=== PATIENT | female | born 1975 | race Caucasian/White ===

== ENCOUNTER 2020-03-02 06:24 | Day surgery (SDC) | payer OTHER ==
[2020-03-02] MEDS ORDERED: Lactated Ringers 1,000 ML IV SCH (06:30)
--- NOTE | 2020-03-02 07:11 | PCM.PREANE ---
Preanesthetic Assessment - Anesthesia/Transfusion/Family Hx Anesthesia History: Prior Anesthesia Without Reaction Family History of Anesthesia Reaction: No Transfusion History: No Prior Transfusion(s) Intubation History: Unknown - Review of Systems General: No Symptoms Pulmonary: No Symptoms Cardiovascular: No Symptoms Gastrointestinal: No Symptoms Neurological: No Symptoms Other: Reports: None - Physical Assessment Vital Signs: Last Vital Signs Temp 36.2 C 03/02/20 06:55 Pulse 78 03/02/20 06:55 Resp 16 03/02/20 06:55 BP 142/83 H 03/02/20 06:55 Pulse Ox 97 03/02/20 06:55 Height: 5 ft 10 in Weight: 107.501 kg ASA Class: 2 Mental Status: Alert & Oriented x3 Airway Class: Mallampati = 2 Dentition: Reports: Normal Dentition Thyro-Mental Finger Breadths: 3 Mouth Opening Finger Breadths: 3 ROM/Head Extension: Full Lungs: Clear to Auscultation, Normal Respiratory Effort Cardiovascular: Regular Rate, Regular Rhythm - Allergies Allergies/Adverse Reactions: Allergies Allergy/AdvReac Type Severity Reaction Status Date / Time No Known Allergies Allergy Verified 02/25/20 08:43 - Blood Blood Available: No - Anesthesia Plan Pre-Op Medication Ordered: None - Acknowledgements Anesthesia Type Planned: General Anesthesia Pt an Appropriate Candidate for the Planned Anesthesia: Yes Alternatives and Risks of Anesthesia Discussed w Pt/Guardian: Yes Pt/Guardian Understands and Agrees with Anesthesia Plan: Yes PreAnesthesia Questionnaire HEENT History: Reports: Impaired Vision Other HEENT History: wears glasses and contact lenses Cardiovascular History: Reports: Other (See Below) (episode of tachy in '06 after prolonged labor (20 hours) and C/S) Respiratory History: Reports: None Gastrointestinal History: Reports: Cholelithiasis Genitourinary History: Reports: None [employer] History: Reports: Polycystic Ovaries, Musculoskeletal History: Reports: Fracture Other Musculoskeletal History: right wrist Neurological History: Reports: None Psychiatric History: Reports: None Endocrine/Metabolic History: Reports: None (BMI 34), Obesity/BMI 30+ Hematologic History: Reports: None Immunologic History: Reports: None Oncologic (Cancer) History: Reports: None Dermatologic History: Reports: None - Infectious Disease History Infectious Disease History: Reports: None - Past Surgical History Head Surgeries/Procedures: Reports: None HEENT Surgical History: Reports: None Cardiovascular Surgical History: Reports: None Respiratory Surgical History: Reports: None GI Surgical History: Reports: Cholecystectomy Female Surgical History: Reports: None, Section (x2) Endocrine Surgical History: Reports: None Musculoskeletal Surgical History: Reports: None Oncologic Surgical History: Reports: None - SUBSTANCE USE Tobacco Use Status *Q: Never Tobacco User Tobacco Use Within Last Twelve Months: Snuff/Dip - HOME MEDS Home Medications: Home Meds Multivitamin with Minerals [Multiple Vitamin] 1 tab PO DAILY 02/25/20 [History] Phentermine/Topiramate [Qsymia 3.75 mg-23 mg Capsule] 0.5 tab PO BID 02/25/20 [History] metFORMIN HCl [Metformin HCl] 1 tab PO BID 02/25/20 [History] - CURRENT (IN HOUSE) MEDS Current Meds: Current Medications Lactated Ringer's (Ringers, Lactated) 1,000 mls @ 100 mls/hr IV ASDIRECTED [facility], 1928–1983 Last Admin: 03/02/20 07:08 Dose: 100 mls/hr Documented by:
[2020-03-02] MEDS ORDERED: Sugammadex Sodium 200 MG/2 ML VIAL ONE (07:17)
[2020-03-02] MEDS ORDERED: ceFAZolin/Dextrose,Iso-Osmotic 2 GM/50 ML Duplex Bag IV ONE (07:17)
[2020-03-02] MEDS ORDERED: Methylene Blue 50 MG/10 ML Ampule ONE (07:35)
[2020-03-02] MEDS ORDERED: Bupivacaine 0.25% 10 ML SDV ONE (07:35)
[2020-03-02] MEDS ORDERED: Ondansetron 4 MG/2 ML SDV ONE (07:35)
[2020-03-02] MEDS ORDERED: Lidocaine 2% 5 ML SDV ONE (07:35)
[2020-03-02] MEDS ORDERED: Ketorolac 30 MG/ML SDV ONE (07:35)
[2020-03-02] MEDS ORDERED: Dexamethasone 4 MG/ML 5 ML MDV ONE (07:35)
[2020-03-02] MEDS ORDERED: Rocuronium Bromide 50 MG/5 ML Syringe ONE ×2 (07:35→09:12)
[2020-03-02] MEDS ORDERED: Propofol 200 MG/20 ML SDV ONE ×4 (07:36→10:16)
[2020-03-02 07:37] LABS: BLOOD UREA NITROGEN,BUN 14 mg/dL (7.0-18.0); CARBON DIOXIDE,CO2 28.4 mmol/L (21.0-32.0); CHLORIDE,CL 105 mmol/L (98-107); GLUCOSE RANDOM 97 mg/dL (74-106); POTASSIUM,K 3.7 mmol/L (3.5-5.1); SODIUM,NA 141 mmol/L (136-145)
[2020-03-02] MEDS ORDERED: HYDROmorphone 2 MG/ML Syringe ONE ×2 (07:39→10:51)
[2020-03-02] MEDS ORDERED: fentaNYL 100 MCG/2 ML SDV ONE (07:39)
[2020-03-02] MEDS ORDERED: Midazolam 1 MG/ML 2 ML SDV ONE (07:39)
[2020-03-02] MEDS ORDERED: Ketamine 500 mg/10 ML MDV ONE (07:39)
[2020-03-02] MEDS ORDERED: Glycopyrrolate 0.2 MG/ML SDV ONE (08:37)
[2020-03-02] MEDS ORDERED: ePHEDrine 50 MG/ML SDV ONE (08:44)
[2020-03-02] MEDS ORDERED: Octyl 2-Cyanoacrylate 1 Tube ONE (09:45)
[2020-03-02] MEDS ORDERED: Fluorescein 5 ML Vial ONE (09:55)
[2020-03-02] MEDS ORDERED: Promethazine 25 MG/ML SDV IM PRN (11:01)
[2020-03-02] MEDS ORDERED: Acetaminophen/oxyCODONE 325-5 MG Tab PO PRN (11:01)
[2020-03-02] MEDS ORDERED: Ketorolac 30 MG/ML SDV IVPUSH PRN (11:01)
[2020-03-02] MEDS ORDERED: Ketorolac 30 MG/ML SDV IVPUSH ONE (11:01)
[2020-03-02] MEDS ORDERED: Morphine 4 MG/ML Syringe IVPUSH PRN (11:01)
[2020-03-02] MEDS: fentaNYL 100 MCG/2 ML SDV IVPUSH PRN ×2 (11:45→11:50)
--- NOTE | 2020-03-02 12:11 | PCM.POSTAN ---
POST ANESTHESIA ASSESSMENT - MENTAL STATUS Mental Status: Alert, Oriented - VITAL SIGNS Vital Signs: Last Vital Signs Temp 36.4 C 03/02/20 10:46 Pulse 67 03/02/20 12:02 Resp 12 03/02/20 12:02 BP 105/59 L 03/02/20 12:02 Pulse Ox 95 03/02/20 12:02 - RESPIRATORY Respiratory Status: Respiratory Rate WNL, Airway Patent, O2 Saturation Stable - CARDIOVASCULAR CV Status: Pulse Rate WNL, Blood Pressure Stable - GASTROINTESTINAL GI Status: No Symptoms - PAIN Pain Score: 3 - POST OP HYDRATION Hydration Status: Adequate & Stable
[2020-03-02] MEDS: Acetaminophen/oxyCODONE 325-5 MG Tab PO PRN ×3 (12:43→23:31)
--- NOTE | 2020-03-02 19:12 | PCM.OPNOTE ---
- General Post-Op/Procedure Note Date of Surgery/Procedure: 03/02/20 Operative Procedure(s): LAVH, bilateral salpingectomy, cystoscopy Findings: 10wk size uterus, normal fallopian tubes and ovaries. Normal abdomen and pelvis Pre Op Diagnosis: Menorrhagia, uterine fibroids Post-Op Diagnosis: Menorrhagia, uterine fibroids Anesthesia Technique: General LMA Primary Surgeon: Jasper Cavazos Secondary Surgeon: Shirin Reed Anesthesia Provider: Karly Figueredo Radic Pathology: Uterus and fallopian tubes Output, Urine Amount: 400 EBL in mLs: 200 Complications: None Condition: Good Free Text/Narrative:: Intake & Output 03/02/20 03/02/20 03/02/20 06:59 14:59 22:59 Intake Total 2450 900 Output Total 710 250 Balance 1740 650
[2020-03-02] MEDS: Ondansetron 4 MG/2 ML SDV IVPUSH PRN (19:41)
--- NOTE | 2020-03-02 19:45 | OR ---
SURGEON: Jasper Cavazos MD DATE OF PROCEDURE: 03/02/2020 INDICATION FOR PROCEDURE: A 45-year-old female with menorrhalgia, presenting for hysterectomy. The patient has a history of menorrhalgia for many years. She had a Mirena IUD since 2011, which was effective previously. She presented after she started having regular cycles and consistently heavy bleeding. Evaluation with pelvic ultrasound and abdominal x-ray revealed the IUD has been expelled, and she had a 4 cm posterior intramural uterine fibroid. Discussed medical and surgical options of management with the patient, she desires surgical management with hysterectomy. PREOPERATIVE DIAGNOSES: 1. Menorrhalgia. 2. Uterine fibroid. POSTOPERATIVE DIAGNOSES: 1. Menorrhalgia. 2. Uterine fibroid. PROCEDURE PERFORMED: Laparoscopic-assisted vaginal hysterectomy, bilateral salpingectomy, cystoscopy. ANESTHESIA: General anesthesia. ANESTHESIOLOGIST: Dr. Karly Massey. RECRUITMENT OFFICER: Shirin Reed MD. FINDINGS: Uterus about 10-week size, diffusely enlarged. Bilateral ovaries and fallopian tubes were normal appearing. The abdomen and pelvis were grossly normal appearing. ESTIMATED BLOOD LOSS: 200 mL. DESCRIPTION OF PROCEDURE: Informed consent was obtained. Risks of procedure were discussed including bleeding, infection, DVT, injury to surrounding organs like bladder or bowel or ureter. The patient was taken to the operating room. She was given Ancef 2 g and SCDs. She underwent general anesthesia with no complications. She was placed in dorsal lithotomy position and legs supported using stirrups. She was prepped and draped in the usual sterile fashion. Russell catheter was placed. Bimanual exam revealed a 10-week size uterus, anteverted, and mobile. No adnexal masses were felt. Speculum was placed in the vagina. The vagina and cervix were grossly normal appearing without lesions. The anterior lip of the cervix was grasped with a single-tooth tenaculum. The cervix was serially dilated with Hegar dilators. A HUMI uterine manipulator was placed in the uterine cavity for manipulation. Attention was then turned to the abdomen. 3 mL of 0.25% Marcaine was injected for local anesthesia at the umbilicus, A 5mm vertical incision was made. Veress needle was used for entry. Intraperitoneal location was confirmed with saline drop test and low opening pressure. CO2 gas was initiated and pneumoperitoneum to 17 mmHg was achieved. 5 mm trocar was placed in the abdominal cavity under guidance with laparoscope. No visceral or vascular injury was seen at the surgery site. Survey of the abdomen noted normal- appearing abdominal cavity with some adhesions of the omentum to the anterior abdominal wall. The pelvis showed grossly enlarged uterus, about 10-week size. Bilateral fallopian tubes and ovaries were normal appearing. Bladder was adhered anteriorly to the lower uterus. A 5 mm trocar was then placed in the right lower quadrant under laparoscopic visualization followed by another 5 mm trocar in the left lower quadrant. The patient was placed in Trendelenburg position. Blunt probe was used to remove the bowel from the operative site. Bilateral ureters were seen in the pelvis and away from the operative site. The left fallopian tube was grasped with atraumatic grasper. The uterus was moved toward the opposite side of the pelvis. The fallopian tube was from the mesosalpinx with the LigaSure device. The utero-ovarian artery and round ligament were cauterized and transected. The broad ligament was carefully dissected toward the cervix. A bladder flap was made by gently dissecting the anterior bladder peritoneum and the bladder away from the underlying pubocervical fascia. The same steps were performed on the right side of the pelvis. The vaginal portion of the hysterectomy was then performed. A weighted speculum was placed in the posterior vaginal vault. The cervix was grasped with a Drew clamp. Cautery was used to make a circumferential incision at the cervicovaginal junction and the vagina was bluntly dissected away from the cervix. The peritoneum was visualized posteriorly and the posterior cul-de-sac entered with Kelly scissors. A gooseneck speculum was placed in the cul-de-sac. The anterior peritoneum was then carefully dissected away from the bladder and the entry was also made anteriorly. The right uterosacral ligament was palpated, grasped with Joaquin clamp, then cut and ligated with 2-0 Vicryl suture. The same step was performed on the left side of the uterus. The suture was held with hemostats to be used later to attach to the vaginal wall. A right angle Z-Clamp was placed behind the uterine fundus and used to visualize the remaining pedicle. A Joaquin clamp was used to grasp the remaining pedicle with the uterine artery. It was clamped and ligated with 2-0 Vicryl bilaterally. The uterus was freed and removed entirely from the vagina and sent to pathology. The pedicles were examined and was found to be hemostatic. The uterosacral ligaments were attached to the lateral vaginal wall with the same suture that was used previously in a mattress stitch. 0 Polysorb suture was then used to close the vaginal mucosa in a running interrupted fashion. The cystoscopy was then performed after fluorescein was given. The bladder was normal appearing without any sign of injury. Bilateral ureteral jets were seen. The Russell catheter was replaced. Attention was again turned to the abdomen. The pelvis was irrigated with copious amounts of saline. The peritoneal edges were noted to be slightly oozy, but none of the pedicles were actively bleeding. Sierra was placed over the peritoneum and hemostasis was confirmed. The pneumoperitoneum was decreased to 5 mmHg and again hemostasis was confirmed. Pneumoperitoneum was then released and all instruments were removed. The skin incision was closed with 3-0 Monocryl in subcuticular fashion. Dermabond was applied over the incision. The patient was awakened from anesthesia without difficulty and taken to the room in stable condition. JESSICA RYAN /[id number] AMY
[2020-03-03] MEDS: Acetaminophen/oxyCODONE 325-5 MG Tab PO PRN ×2 (03:26→10:18)
[2020-03-03 05:56] LABS: BLOOD UREA NITROGEN,BUN 9 mg/dL (7.0-18.0); CARBON DIOXIDE,CO2 27.3 mmol/L (21.0-32.0); CHLORIDE,CL 102 mmol/L (98-107); GLUCOSE RANDOM 102 mg/dL (74-106); POTASSIUM,K 3.4 mmol/L (3.5-5.1); SODIUM,NA 136 mmol/L (136-145)
[2020-03-03] MEDS: Ondansetron 4 MG/2 ML SDV IVPUSH PRN (07:48)
--- NOTE | 2020-03-03 07:57 | PCM48HPAN ---
Post Anesthesia Note - EVALUATION WITHIN 48HRS OF ANESTHETIC Vital Signs in Normal Range: Yes Patient Participated in Evaluation: Yes Respiratory Function Stable: Yes Airway Patent: Yes Cardiovascular Function Stable: Yes Hydration Status Stable: Yes Pain Control Satisfactory: Yes Nausea and Vomiting Control Satisfactory: Yes (had an episode of nausea last night and again this am. ) Mental Status Recovered: Yes Vital Signs: Last Vital Signs Temp 37.1 C 03/03/20 06:57 Pulse 61 03/03/20 06:57 Resp 16 03/03/20 06:57 BP 127/69 03/03/20 06:57 Pulse Ox 98 03/03/20 06:57
--- NOTE | 2020-03-03 09:11 | PCM.PN ---
- General Info Date of Service: 03/03/20 Subjective Update: Had some nausea after dinner, improved after zofran. This morning when she got up, started feeling nausea again with vomitting. Has not passed flatus yet. Russell removed last night, has not voiding yet. Functional Status: Reports: Pain Controlled, Ambulating - Review of Systems General: Reports: No Symptoms HEENT: Reports: No Symptoms Pulmonary: Reports: No Symptoms Cardiovascular: Reports: No Symptoms Gastrointestinal: Reports: Nausea, Vomiting Genitourinary: Reports: No Symptoms Musculoskeletal: Reports: No Symptoms Skin: Reports: No Symptoms Neurological: Reports: No Symptoms Psychiatric: Reports: No Symptoms - Patient Data Vitals - Most Recent: Last Vital Signs Temp 37.1 C 03/03/20 06:57 Pulse 61 03/03/20 06:57 Resp 16 03/03/20 06:57 BP 127/69 03/03/20 06:57 Pulse Ox 98 03/03/20 06:57 Weight - Most Recent: 237 lb I&O - Last 24 Hours: Intake & Output 03/02/20 03/03/20 03/03/20 22:59 06:59 14:59 Intake Total 900 250 Output Total 650 750 Balance 250 -500 Lab Results Last 24 Hours: Laboratory Results - last 24 hr 03/03/20 03/03/20 Range/Units 04:53 04:53 WBC 8.12 (4.0-11.0) K/uL RBC 3.24 L (4.30-5.90) M/uL Hgb 9.3 L (12.0-16.0) g/dL Hct 29.9 L (36.0-46.0) % MCV 92.3 (80.0-98.0) fL MCH 28.7 (27.0-32.0) pg MCHC 31.1 (31.0-37.0) g/dL RDW Std Deviation 47.4 (28.0-62.0) fl RDW Coeff of Leatha 14 (11.0-15.0) % Plt Count 240 (150-400) K/uL MPV 10.10 (7.40-12.00) fL Neut % (Auto) 74.0 (48.0-80.0) % Lymph % (Auto) 19.6 (16.0-40.0) % [place] % (Auto) 5.9 (0.0-15.0) % Eos % (Auto) 0.4 (0.0-7.0) % Baso % (Auto) 0.1 (0.0-1.5) % Neut # (Auto) 6.0 H (1.4-5.7) K/uL Lymph # (Auto) 1.6 (0.6-2.4) K/uL [place] # (Auto) 0.5 (0.0-0.8) K/uL Eos # (Auto) 0.0 (0.0-0.7) K/uL Baso # (Auto) 0.0 (0.0-0.1) K/uL Nucleated RBC % 0.0 /100WBC Nucleated RBCs # 0 K/uL Sodium 136 (136-145) mmol/L Potassium 3.4 L (3.5-5.1) mmol/L Chloride 102 (98-107) mmol/L Carbon Dioxide 27.3 (21.0-32.0) mmol/L BUN 9 (7.0-18.0) mg/dL Creatinine 0.7 (0.6-1.0) mg/dL Est Cr Clr Drug Dosing 112.06 mL/min Estimated GFR (MDRD) > 60.0 ml/min Glucose 102 (74-106) mg/dL Calcium 8.1 L (8.5-10.1) mg/dL Total Bilirubin 0.3 (0.2-1.0) mg/dL AST 19 (15-37) IU/L ALT 37 (14-63) IU/L Alkaline Phosphatase 54 (46-116) U/L Total Protein 5.5 L (6.4-8.2) g/dL Albumin 2.8 L (3.4-5.0) g/dL Globulin 2.7 (2.6-4.0) g/dL Albumin/Globulin Ratio 1.0 (0.9-1.6) Med Orders - Current: Current Medications Ketorolac Tromethamine (Toradol) 30 mg IVPUSH Q6H PRN PRN Reason: Pain (severe 7-10) Stop: 03/07/20 11:01 Last Admin: 03/02/20 19:44 Dose: 30 mg Documented by: Morphine Sulfate (Morphine) 4 mg IVPUSH Q2H PRN PRN Reason: Pain (severe 7-10) Ondansetron HCl (Zofran) 4 mg IVPUSH Q6H PRN PRN Reason: Nausea/Vomiting Last Admin: 03/03/20 07:48 Dose: 4 mg Documented by: Oxycodone/Acetaminophen (Percocet 325-5 Mg) 1 tab PO Q4H PRN PRN Reason: Pain (moderate 4-6) Oxycodone/Acetaminophen (Percocet 325-5 Mg) 2 tab PO Q4H PRN PRN Reason: Pain (moderate 4-6) Last Admin: 03/03/20 03:26 Dose: 2 tab Documented by: Promethazine HCl (Phenergan) 25 mg IM Q6H PRN PRN Reason: Nausea/Vomiting Last Admin: 03/03/20 08:31 Dose: 25 mg Documented by: Discontinued Medications Bupivacaine HCl (Sensorcaine-Mpf 0.25%) Confirm Administered Dose 20 ml .ROUTE .STK-MED ONE Stop: 03/02/20 07:36 Cefazolin Sodium/Dextrose (Ancef) Confirm Administered Dose 2 gm IV .STK-MED ONE Stop: 03/02/20 07:18 Dexamethasone (Dexamethasone) Confirm Administered Dose 20 mg .ROUTE .STK-MED ONE Stop: 03/02/20 07:36 Ephedrine Sulfate (Ephedrine Sulfate) Confirm Administered Dose 50 mg .ROUTE .STK-MED ONE Stop: 03/02/20 08:45 Fentanyl (Sublimaze) Confirm Administered Dose 100 mcg .ROUTE .STK-MED ONE Stop: 03/02/20 07:40 Fentanyl (Sublimaze) 50 - 100 mcg IVPUSH Q5M PRN PRN Reason: Pain (severe 7-10) Last Admin: 03/02/20 11:50 Dose: 50 mcg Documented by: Fluorescein Sodium (Ak-Fluor) Confirm Administered Dose 5 ml .ROUTE .STK-MED ONE Stop: 03/02/20 09:56 Glycopyrrolate (Robinul) Confirm Administered Dose 0.2 mg .ROUTE .STK-MED ONE Stop: 03/02/20 08:38 Hydromorphone HCl (Dilaudid) Confirm Administered Dose 2 mg .ROUTE .STK-MED ONE Stop: 03/02/20 07:40 Hydromorphone HCl (Dilaudid) Confirm Administered Dose 2 mg .ROUTE .STK-MED ONE Stop: 03/02/20 10:52 Last Admin: 03/03/20 07:07 Dose: Not Given Documented by: Lactated Ringer's (Ringers, Lactated) 1,000 mls @ 100 mls/hr IV ASDIRECTED SARAH Last Admin: 03/02/20 07:08 Dose: 100 mls/hr Documented by: Acetaminophen (Ofirmev) Confirm Administered Dose 100 mls @ as directed .ROUTE .STK-MED ONE Stop: 03/02/20 07:18 Ketamine HCl (Ketalar) Confirm Administered Dose 500 mg .ROUTE .STK-MED ONE Stop: 03/02/20 07:40 Ketorolac Tromethamine (Toradol) Confirm Administered Dose 30 mg .ROUTE .STK-MED ONE Stop: 03/02/20 07:36 Ketorolac Tromethamine (Toradol) 30 mg IVPUSH ONETIME ONE Stop: 03/02/20 11:02 Last Admin: 03/02/20 11:36 Dose: Not Given Documented by: Lidocaine (Xylocaine-Mpf 2%) Confirm Administered Dose 5 ml .ROUTE .STK-MED ONE Stop: 03/02/20 07:36 Methylene Blue (Provayblue) Confirm Administered Dose 50 mg .ROUTE .STK-MED ONE Stop: 03/02/20 07:36 Midazolam HCl (Versed 1 Mg/Ml) Confirm Administered Dose 2 mg .ROUTE .STK-MED ONE Stop: 03/02/20 07:40 Octyl Cyanoacrylate (Dermabond Advance) Confirm Administered Dose 1 applic .ROUTE .STK-MED ONE Stop: 03/02/20 09:46 Ondansetron HCl (Zofran) Confirm Administered Dose 4 mg .ROUTE .STK-MED ONE Stop: 03/02/20 07:36 Propofol (Diprivan 20 Ml) Confirm Administered Dose 200 mg .ROUTE .STK-MED ONE Stop: 03/02/20 07:37 Propofol (Diprivan 20 Ml) Confirm Administered Dose 600 mg .ROUTE .STK-MED ONE Stop: 03/02/20 07:40 Propofol (Diprivan 20 Ml) Confirm Administered Dose 600 mg .ROUTE .STK-MED ONE Stop: 03/02/20 08:57 Propofol (Diprivan 20 Ml) Confirm Administered Dose 200 mg .ROUTE .STK-MED ONE Stop: 03/02/20 10:17 Rocuronium Norman (Rocuronium Norman) Confirm Administered Dose 50 mg .ROUTE .STK-MED ONE Stop: 03/02/20 07:36 Rocuronium Norman (Rocuronium Norman) Confirm Administered Dose 50 mg .ROUTE .STK-MED ONE Stop: 03/02/20 09:13 Sugammadex Sodium (Bridion) Confirm Administered Dose 200 mg .ROUTE .STK-MED ONE Stop: 03/02/20 07:18 - Exam General: Alert, Oriented, Cooperative, No Acute Distress HEENT: Pupils Equal, Pupils Reactive Neck: Supple, Trachea Midline Lungs: Clear to Auscultation, Normal Respiratory Effort Cardiovascular: Regular Rate, Regular Rhythm, No Murmurs GI/Abdominal Exam: Normal Bowel Sounds, Soft, Non-Tender, No Organomegaly, No Distention Back Exam: Normal Inspection, Full Range of Motion Extremities: Normal Inspection, Normal Range of Motion, Non-Tender, No Pedal Edema Skin: Warm, Dry, Intact Wound/Incisions: Healing Well Neurological: No New Focal Deficit Psy/Mental Status: Alert, Normal Affect, Normal Mood Sepsis Event Note - Evaluation Sepsis Screening Result: No Definite Risk - Focused Exam Vital Signs: Vital Signs Temp Pulse Resp BP Pulse Ox 03/03/20 06:57 37.1 C 61 16 127/69 98 03/03/20 03:29 37.1 C 72 16 119/72 96 03/02/20 23:34 37.1 C 68 16 119/64 99 - Problem List Review Problem List Initiated/Reviewed/Updated: Yes - My Orders Last 24 Hours: My Active Orders 03/02/20 Lunch Regular Diet [DIET] 03/02/20 11:01 Patient Status [ADT] Routine Notify Provider Intake and Out [RC] ASDIRECTED Notify Provider Vital Signs [RC] ASDIRECTED Oxygen Therapy [RC] ASDIRECTED RT Incentive Spirometry [RC] Q2HWA Up With Assistance [RC] PER UNIT ROUTINE Up ad Kathleen [RC] PER UNIT ROUTINE Vital Signs [RC] PER UNIT ROUTINE Acetaminophen/oxyCODONE [Percocet 325-5 MG] 1 tab PO Q4H PRN Acetaminophen/oxyCODONE [Percocet 325-5 MG] 2 tab PO Q4H PRN Ketorolac [Toradol] 30 mg IVPUSH Q6H PRN Morphine 4 mg IVPUSH Q2H PRN Ondansetron [Zofran] 4 mg IVPUSH Q6H PRN Promethazine [Phenergan] 25 mg IM Q6H PRN Peripheral IV Discontinue [OM.PC] Routine Sequential Compression Device [OM.PC] Per Unit Routine Resuscitation Status Routine 03/02/20 11:02 Antiembolic Devices [RC] PER UNIT ROUTINE - Assessment Assessment:: 45yo POD1 s/p LAVH, bilateral salpingectomy and cystoscopy. - Plan Plan:: Having nausea and has not passed flatus yet. Hgb 9.3 this AM, denies s/s of anemia, will start iron supplements Good UO, has not voided yet. Pain controlled with percocets Willl continue to monitor symptoms, plan for discharge today when tolerating PO and voiding.
== END 2020-03-03 11:05 | disposition home or self-care (01) ==
LOC: MW.SDS 06:24 → MW.MS 12:26 → MW.SDS 03-03 11:05
PROVIDERS: ATTEND Obstetrics & Gynecology
DX: D25.0 Submucous leiomyoma of uterus (principal); E66.9 Obesity, unspecified; R00.0 Tachycardia, unspecified; F17.220 Nicotine dependence, chewing tobacco, uncomplicated; Z68.34 Body mass index [BMI] 34.0-34.9, adult; Z01.812 Encounter for preprocedural laboratory examination; Z20.828 Contact with and (suspected) exposure to other viral communicable diseases; Z79.899 Other long term (current) drug therapy; Z98.890 Other specified postprocedural states
CPT/HCPCS: 36415; 58552; 80053; 84703; 85025; 85027; 86850; 86900; 86901; 88309; A9270; J0131; J0690; J1100; J1170; J1885; J2001; J2250; J2405; J2550; J2704; J3010; J3490; J7120; 00944